=== PATIENT | female | born 1985 | race Two or more races ===

== ENCOUNTER 2023-08-06 20:30 | Outpatient (REF) | payer OTHER, SELFPAY ==
[2023-08-11 13:09] LABS: Age Gdln ACOG Testing Note (.); HPV Aptima Negative (Negative); IGP, Aptima HPV, rfx 16/18,45 Note (.)
== END 2023-08-06 20:31 | disposition home or self-care (01) ==
LOC: LAB 20:30
PROVIDERS: Visit Provider Obstetrics & Gynecology
DX: Z01.419 Encounter for gynecological examination (general) (routine) without abnormal findings (principal)
CPT/HCPCS: 87624; G0145

== ENCOUNTER 2024-08-25 18:18 | Outpatient (REF) | payer OTHER, SELFPAY ==
--- OUTSIDE RECORDS SUMMARY | 2024-08-25 18:24 | XMS_ITS | CCD ---
Author Organization [facility] Care Team Providers Care Mold Inspector Name Role Phone DARRYL ., DR LUZ Admitting Unavailable DARRYL ., DR LUZ Attending Unavailable DARRYL ., DR LUZ Consulting Unavailable DARRYL ., DR LUZ Admitting Unavailable DARRYL ., DR LUZ Attending Unavailable REQUEST, DR STEPHENSON LISTED Primary Care Unavaila ble DARRYL ., DR LUZ Consulting Unavailable ZIEBER, DR KOFI Mancilla Consulting Unavailable Unavailable Primary Care Provider Unavailabl e SUKH ANDREWS Attending Unavailable TEO BRADFORD Referring Unavailable RUBIO, JASON Primary Care Unavailable TEO BRADFORD Attending Unavailable RUBIO, JASON Referring Unavailable RUBIO, JASON Primary Care Unavailable SANCHEZ BRUCE N Attending Unavailable RUBIO, JASON Referring Unavailable RUBIO, JASON Primary Care Unavailable RUBIO, JASON Referring Unavailable RUBIO, JASON Primary Care Unavailable Rubio PENSION EXAMINER-CUSTOMER SERVICE ADVISOR, Jason Primary Care Provider [phone] RUBIO JASON Attending Unavailable RUBIO, JASON Referring Unavailable RUBIO, JASON Primary Care Unavailable RUBIO, JASON Attending Unavailable RUBIO, JASON Referring Unavailable RUBIO, JASON Primary Care Unavailable MUSTAPHA WARD Attending Unavailable RUBIO, JASON Referring Unavailable RUBIO, JASON Primary Care Unavailable RUBIO, JASON Attending Unavailable RUBIO, JASON Referring Unavailable RUBIO, JASON Primary Care Unavailable KIZZY AHN Attending Unavailable RUBIO, JASON Referring Unavailable RUBIO, JASON Primary Care Unavailable MUSTAPHA WARD Attending Unavailable RUBIO, JASON Referring Unavailable RUBIO, JASON Primary Care Unavailable RUBIO, JASON Attending Unavailable RUBIO, JASON Referring Unavailable RUBIO, JASON Primary Care Unavailable RUBIO, JASON Attending Unavailable RUBIO, JASON Referring Unavailable RUBIO, JASON Primary Care Unavailable Allergies Allergy Classification Reported Allergen(s) Allergy Type Date of Onset Reaction(s) Facility (7 sources) Lisinopril; Translations: [LISINOPRIL] Drug Allergy 06-21-2021 Headache [facility] Rep[facility] Medications Current Medications Medication Drug Class(es) Dates Sig (Normalized) Sig (Original) 12 hr acetaZOLAMIDE 500 mg extended release oral capsule (7 sources) Carbonic Anhydrase Inhibitor Start: 04-10-2024 take 1 capsule by mouth in the morning, then take 1 capsule by mouth at bedtime acetaZOLAMIDE (DIAMOX) 500 mg capsule Indications: Pseudotumor cerebri Take 1 capsule (500 mg total) by mouth in the morning and 1 capsule (500 mg total) before bedtime. 04/10/2024 Active take 2 capsules by m outh twice daily at bedtime acetaZOLAMIDE (Diamox) 500 MG 12 hr capsule TAKE 2 CAPSULES BY MOUTH TWICE DAILY (IN THE MORNING AND BEFORE BEDTIME) Active End: 08-25-2024 acetaZOLAMIDE (Diamox) 500 M G 12 hr capsule Diamox Sequels 08/25/2024 Discontinued [id number] 200 actuat albuterol 0.09 mg/actuat metered dose inhaler (2 sources) beta2-Adrenergic Agonist Start: 03-19-2024 take 2 puff(s) by mouth every six hours as needed for wheezing albuterol HFA 90 mcg/act inhaler INHALE 2 PUFFS BY MOUTH EVERY 6 HOURS NEEDED FOR WHEEZING OR SHORTNESS OF BREATH 03/19/2024 Active cholestyramine resin 4000 mg powder for oral suspension (1 source) Bile Acid Sequestrant Start: 04-10-2024 cholestyramine (QUESTRAN) 4 g packet Take 1 packet by mouth in the morning and 1 packet at noon and 1 packet in the evening. Take with meals. 90 packet 3 04/10/2024 Active levothyroxine sodium 0.025 mg oral tablet (4 sources) l-Thyroxine Start: 01-07-2024 take 1 tablet by mouth in the morning levothyroxine (SYNTHROID, LEVOTHROID) 25 MCG tablet Indications: Hypothyroidism, unspecified type Take 1 tablet (25 mcg total) by mouth in the morning. 90 tablet 3 01/07/2024 Active ondansetron 4 mg disintegrating oral tablet (1 source) Serotonin-3 Receptor Antagonist Start: 06-19-2024 ondansetron ODT (ZOFRAN ODT) 4 mg disintegrating tablet Indications: Influenza A Dissolve 1 tablet (4 mg total) on tongue every 8 (eight) hours as needed for nausea or vomiting. 10 tablet 06/19/2024 Active Start: 06-19-2024 ondansetron OD T (ZOFRAN ODT) 4 mg disintegrating tablet Indications: Influenza A Dissolve 1 tablet (4 mg total) on tongue every 8 (eight) hours as needed for nausea or vomiting. 10 tablet 06/19/2024 Active 24 hr propranolol hydrochloride 80 mg extended release oral capsule (7 sources) beta-Adrenergic Matti Start: 01-17-2024 take 1 capsule by mouth once daily in the morning propranolol LA (INDERAL LA) 80 mg 24 hr capsule Indications: Anxiety , Hypertension, unspecified type take 1 capsule by mouth every morning 90 capsule 3 01/17/2024 Active End: 08-25-2024 propranolol LA (Inderal LA) 60 MG 24 hr capsule Propranolol HCl 08/25/2024 Discontinued (Ineffective) Problems Active Problems Problem Classification Problem Date Documented Da te Episodic/Chronic Diseases of white blood cells (4 sources) Elevated white blood cell count, unspecified; Translations: [Lymphocytosis (symptomatic)] Onset: 01-02-2023 01-02-2023 Chronic Disorders of lipid metabolism (1 source) Mixed hyperlipidemia; Translations: [Mixed hyperlipidemia] Onset: 02-02-2021 02-02-2021 Chronic Essential hypertension (1 source) Essential hypertension; Translations: [Essential (primary) hypertension] Onset: 02-02-2021 02-02-2021 Chronic Influenza (2 sources) Influenza due to Influenza A virus; Translations: [Influenza due to other identified influenza virus with other respiratory manifestations] Onset: 06-19-2024 06-19-2024 Episodic Nonmalignant breast conditions (5 sources) Other specified disorders of breast; Translations: [Unspecified lump in the left breast, upper inner quadrant] Onset: 08-23-2022 Episodic Other endocrine disorders (1 source) Empty sella syndrome; Translations: [Other disorders of pituitary gland] Onset: 06-21-2021 06-21-2021 Chronic Other endocrine disorders (1 source) Other disorders of pituitary gland; Translations: [Other disorders of pituitary gland] Onset: 06-21-2021 Chronic Other gastrointestinal disorders (1 source) Other fecal abnormalities; Translations: [Other fecal abnormalities] Onset: 04-10-2024 Episodic Other lower respiratory disease (1 source) Cough Onset: 06-19-2024 Episodic Other nervous system disorders (1 source) Benign intracranial hypertension; Translations: [Benign intracranial hypertension] Onset: 05-21-2021 05-21-2021 Chronic Other nervous system disorders (1 source) Benign intracranial hypertension; Translations: [Benign intracranial hypertension] Onset: 05-21-2021 Chronic Other non-traumatic joint disorders (2 sources) Bilateral chronic pain of upper limbs; Translations: [Pain in right shoulder] 08-25-2024 Episodic Other nutritional; endocrine; and metabolic disorders (1 source) Body mass index 40+ - severely obese; Translations: [Body mass index (BMI) 45.0-49.9, adult] Onset: 02-02-2021 02-02-2021 Chronic Residual codes; unclassified (1 source) Family history of malignant neoplasm of trachea, bronchus and lung; Translations: [FAM HX MALIG NEOPLSM TRACH BRON LNG] Onset: 08-26-2022 Episodic Residual codes; unclassified (1 source) Family history of malignant neoplasm of other organs or systems; Translations: [FAM HX MALIG NEOPLASM OTH ORGN/SYS] Onset: 08-26-2022 Episodic Residual codes; unclassified (1 source) Generalized aches and pains; Translations: [Pain, unspecified] 06-19-2024 Episodic Residual codes; unclassified (1 source) Pain, unspecified; Translations: [Pain, unspecified] Onset: 06-19-2024 Episodic Spondylosis; intervertebral disc disorders; other back problems (2 sources) Backache; Translations: [Dorsalgia, unspecified] 08-25-2024 Episodic Thyroid disorders (3 sources) Hypothyroidism, unspecified; Translations: [Hypothyroidism] Onset: 02-02-2021 01-11-2023 Chronic Unclassified (1 source) Illness Onset: 01-15-2024 Viral infection (1 source) COVID-19; Translations: [COVID-19] Onset: 01-15-2024 Past or Other Problems Problem Classification Problem Date Documented Date Episodic/Chronic Headache; including migraine (1 source) Headache; Translations: [Chronic nonintractable headache] Onset: 05-21-2021 Resolved: 07-26-2023 07-26-2023 Episodic Mood disorders (1 source) Mood disorders Onset: 04-10-2024 04-10-2024 Other screening for suspected conditions (not mental disorders or infectious disease) (6 sources) Encounter for screening for malignant neoplasm of cervix; Translations: [Encounter for screening for lipoid disorders] Onset: 08-02-2022 Episodic Other upper respiratory disease (1 source) Throat pain Onset: 06-27-2023 Episodic Other upper respiratory infections (1 source) Acute pharyngitis, unspecified; Translations: [Acute pharyngitis, unspecified] Onset: 06-27-2023 Episodic Otitis media and related conditions (1 source) Otitis media, unspecified, left ear; Translations: [Otitis media, unspecified, left ear] Onset: 06-27-2023 Episodic Pneumonia (except that caused by tuberculosis or sexually transmitted disease) (1 source) Pneumonia, unspecified organism; Translations: [Pneumonia, unspecified organism] Onset: 03-19-2024 Episodic Results Test Name Value Interpretation Reference Range Facility POCT Influenza A/Influenza B /SARS-COV-2 Veritoron 06-19-2024 External Poct Influenza A Antigen Positive [facility] External Poct Influenza B Antigen Negative [facility] SARS-CoV-2 (COVID-19) Ag IA.rapid Ql (Resp) Negative [facility] CBC AND AUTO DIFFon 04-03-20 ABSOLUTE BASOPHIL 0.1 X10E9/L Normal 0.0-0.2 [facility] Comment on above: Performed By: #### C ANATOLIY BRYAN, 88467-7, 3016-3, 3024-7 #### [facility] ([id number]) [address], [address] [place] [address] ABSOLUTE NEUTROPHIL 3.8 X10E9/L Normal 1.5-6.6 [facility] Comment on above: Performed By: #### C ANATOLIY BRYAN, 93468-0, 3016-3, 3024-7 #### [facility] ([id number]) [address], [address] [place] [address] Basophils/100 WBC (Bld) 0.7 % Normal [facility] Comment on above: Performed By: #### C BCA, CMP, 15785-2, 3016-3, 3023-7 #### [facility] ([id number]) [address] [place] [address] Eosinophils (Bld) [#/Vol] 0.2 10*3/uL Normal 0.0-0.4 [facility] Comment on above: Performed By: #### C BCA, CMP, 33954-8, 3016-3, 3023-7 #### [facility] ([id number]) [address], [facility] [address] [place] [address] Eosinophils/100 WBC (Bld) 2.2 % Normal [facility] Comment on above: Performed By: #### C BCA, CMP, 57778-3, 6-3, 3023-7 #### [facility] ([id number]) [address] [place] [address] Erythrocyte distribution width (RBC) [Ratio] 15.6 % High 11.5-15.0 [facility] Comment on above: Performed By: #### C BCA, CMP, 46654-6, 3016-3, 3023-12 #### [facility] ([id number]) [address] [place] [address] Hematocrit (Bld) [Volume fraction] 43.7 % Normal 35-47 [facility] Comment on above: Performed By: #### C BCA, CMP, 95181-6, 3016-3, 3023-12 #### [facility] ([id number]) [address] [place] [address] Hemoglobin (Bld) [Mass/Vol] 14.4 g/dL Normal 11.7-15.5 [facility] Comment on above: Performed By: #### C BCA, CMP, 56116-7, 3016-3, 3023-7 #### [facility] ([id number]) [address] [address] [place] [address] Lymphocytes (Bld) [#/Vol] 3.3 10*3/uL Normal 1.0-3.5 [facility] Comment on above: Performed By: #### Lexx BCA CMP, 39133-0, 3016-3, 3023-7 #### [facility] ([id number]) [address] [place] [address] Lymphocytes/100 WBC (Bld) 43.0 % Normal [facility] Comment on above: Performed By: #### C BCA, CMP, 51094-9, 6-3, 3023-7 #### [facility] ([id number]) [address] [address] MCH (RBC) [Entitic mass] 28.7 pg Normal 27-34 [facility] Comment on above: Performed By: #### Lexx BCA, CMP, 38596-5, 3015-3, 3023-12 #### [facility] ([id number]) [address] [place] [address] MCHC (RBC) [Mass/Vol] 32.9 g/dL Normal 32-36 [facility] Comment on above: Performed By: #### Lexx BCA, CMP, 98022-7, 3015-3, 7 #### [facility] ([id number]) [address] [address] MCV (RBC) [Entitic vol] 87 fL Normal 80-100 [facility] Comment on above: Performed By: #### Lexx BCA, CMP, 31532-1, 6-3, 3023- #### [facility] ([id number]) [address] [place] [address] Monocytes (Bld) [#/Vol] 0.4 10*3/uL Normal 0-0.9 [facility] Comment on above: Performed By: #### Lexx BCA, CMP, 69056-4, 3016-3, 3024-7 #### [facility] ([id number]) [address], [address] [place] [address] Monocytes/100 WBC (Bld) 5.0 % Normal [facility] Comment on above: Performed By: #### C BCA, CMP, 67939-4, 3016-3, 3024-7 #### [facility] ([id number]) [address], [address] [place] [address] Neutrophils/100 WBC (Bld) 49.1 % Normal [facility] Comment on above: Performed By: #### Lexx BCA, CMP, 75942-7, 3016-3, 302-7 #### [facility] ([id number]) [address], [address] [place] [address] Platelet mean volume (Bld) [Entitic vol] 10.2 fL Normal 7-12 [facility] Comment on above: Performed By: #### Lexx BCA, CMP, 13726-7, 3016-3, 302-7 #### [facility] ([id number]) [address], [address] [place] [address] Platelets (Bld) [#/Vol] 287 10*3/uL Normal 150-450 [facility] Comment on above: Performed By: #### Lexx BCA, CMP, 91368-7, 3016-3, 302-7 #### [facility] ([id number]) [address], [address] [place] [address] RBC COUNT 5.01 X10E12/L Normal 3.80-5.20 [facility] Comment on above: Performed By: #### C BCA, CMP, 61573-3, 3016-3, 3024-7 #### [facility] ([id number]) [address], [address] [place] [address] WBC (Bld) [#/Vol] 7.7 10*3/uL Normal 4.0-11.0 [facility] Comment on above: Performed By: #### C BCA, CMP, 04186-9, 3016-3, 3024-7 #### [facility] ([id number]) [address], [address] [place] [address] COMPREHENSIVE METABOLIC PANE Lanre 04-03-2024 Albumin [Mass/Vol] 4.0 g/dL Normal 3.2-5.3 [facility] Comment on above: Performed By: #### C BCA, CMP, 96421-7, 3016-3, 3024-7 #### [facility] ([id number]) [address], [address] [place] [address] ALP [Catalytic activity/Vol] 59 U/L Normal 39-130 [facility] Comment on above: Performed By: #### C BCA, CMP, 83793-8, 3016-3, 3024-7 #### [facility] ([id number]) [address], [address] [place] [address] ALT [Catalytic activity/Vol] 14 U/L Normal 0-31 [facility] Comment on above: Performed By: #### C BCA, CMP, 11711-6, 3016-3, 3024-7 #### [facility] ([id number]) [address], [address] [place] [address] Anion gap [Moles/Vol] 9 mmol/L Normal 5-15 [facility] Comment on above: Performed By: #### C BCA, CMP, 61870-0, 3016-3, 3024-7 #### [facility] ([id number]) [address], [address] [place] [address] AST [Catalytic activity/Vol] 16 U/L Normal 0-41 [facility] Comment on above: Performed By: #### C BCA, CMP, 63350-7, 3016-3, 3024-7 #### [facility] ([id number]) [address], [address] [place] [address] Bilirubin [Mass/Vol] 0.6 mg/dL Normal 0.3-1.2 [facility] Comment on above: Performed By: #### C BCA, CMP, 02397-1, 3016-3, 3024-7 #### [facility] ([id number]) [address], [address] [place] [address] Calcium [Mass/Vol] 9.0 mg/dL Normal 8.5-10.5 [facility] [place] Comment on above: Performed By: #### C BCA, CMP, 49603-2, 3016-3, 302-7 #### [facility] ([id number]) [address], [address] [place] [address] Chloride [Moles/Vol] 112 mmol/L High 98-109 [facility] Comment on above: Performed By: #### C BCA, CMP, 68472-1, 3016-3, 302-7 #### [facility] ([id number]) [address], [address] [place] [address] CO2 [Moles/Vol] 19 mmol/L Low 22-32 [facility] Comment on above: Performed By: #### C BCA, CMP, 82567-5, 3016-3, 302-7 #### [facility] ([id number]) [address], [address] [place] [address] Creatinine [Mass/Vol] 0.81 mg/dL Normal 0.40-1.00 [facility] Comment on above: Result Comment: METH OD TRACEABLE TO IDMS STANDARD Performed By: #### C BCA, CMP, 98674-8, 3016-3, 3024-7 #### [facility] ([id number]) [address], [address] [place] [address] eGFR (CKD-EPI) NON-RACE DEPENDENT >90 Normal >59 [facility] Comment on above: Result Comment: Reported eGFR is based on the CKD-EPI 2020 equation that does not use a race coefficient. Performed By: #### C BCA, CMP, 65227-7, 3016-3, 3023-7 #### [facility] ([id number]) [address], [address] [place] [address] Glucose [Mass/Vol] 92 mg/dL Normal 65-99 [facility] Comment on above: Performed By: #### C BCA, CMP, 45318-6, 3016-3, 7 #### [facility] ([id number]) [address], [address] [place] [address] Potassium [Moles/Vol] 4.1 mmol/L Normal 3.5-5.0 [facility] Comment on above: Performed By: #### C BCA, CMP, 11096-0, 3016-3, 7 #### [facility] ([id number]) [address], [address] [place] [address] Protein [Mass/Vol] 7.0 g/dL Normal 6.0-8.0 [facility] Comment on above: Performed By: #### C BCA, CMP, 43357-9, 3016-3, 7 #### [facility] ([id number]) [address], [address] [place] [address] Sodium [Moles/Vol] 140 mmol/L Normal 134-146 [facility] [place] Comment on above: Performed By: #### C BCA, CMP, 85949-1, 3016-3, 3023-7 #### [facility] ([id number]) [address], [address] [place] [address] Urea nitrogen [Mass/Vol] 17 mg/dL Normal 5-23 [facility] Comment on above: Performed By: #### C BCA, CMP, 54318-4, 3016-3, 3023-7 #### [facility] ([id number]) [address], [address] [place] [address] FREE T4on 04-03-2024 Free T4 [Mass/Vol] 0.71 ng/dL Normal 0.61-1.60 [facility] [place] Comment on above: Performed By: #### Lexx BCA, CMP, 75989-4, 6-3, 3023-7 #### [facility] ([id number]) [address], [address] [place] [address] Lipid 1996 panelon Cholesterol [Mass/Vol] 138 mg/dL Low 150-200 [facility] Comment on above: Performed By: #### Lexx BRYAN, CMP, 38890-7, 3015-3, 302-7 #### [facility] ([id number]) [address], [address] [place] [address] Cholesterol in HDL [Mass/Vol] 41 mg/dL Normal >39 [facility] Comment on above: Result Comment: HDL <40 mg/dL - High Risk HDL > or = 40mg/dL- Desirable HDL >60 mg/dL - Negative Risk Performed By: #### C BCA, CMP, 23017-6, 3015-3, 302-7 #### [facility] ([id number]) [address], [address] [place] [address] Cholesterol in LDL [Mass/Vol] 87 mg/dL Normal <130 [facility] Comment on above: Result Comment: LDL <100 mg/dL - Desirable LDL >160 mg/dL - High Risk Performed By: #### C BCA, CMP, 72091-5, 6-3, 3024-7 #### [facility] ([id number]) [address], [address] [place] [address] Cholesterol in VLDL [Mass/Vol] 10 mg/dL Normal 0-30 [facility] Comment on above: Performed By: #### C BCA, CMP, 16785-9, 3016-3, 3024-7 #### [facility] ([id number]) [address], [address] [place] [address] CHOLESTEROL:HDL 3.4 Normal 1.0-5.0 [facility] Comment on above: Performed By: #### C BCA, CMP, 66540-4, 3016-3, 3024-7 #### [facility] ([id number]) [address], [address] [place] [address] Triglyceride [Mass/Vol] 51 mg/dL Normal 27-150 [facility] Comment on above: Performed By: #### C BCA, CMP, 10251-4, 3016-3, 3024-7 #### [facility] ([id number]) [address], [address] [place] [address] TSH Qnon 04-03-2024 TSH 3.87 uIU/mL Normal 0.49-4.67 [facility] Comment on above: Performed By: #### C BCA, CMP, 90512-2, 3016-3, 3024-7 #### [facility] ([id number]) [address], [address] [place] [address] CBC AND AUTO DIFFon 11-02-19 24 ABSOLUTE BASOPHIL 0.1 X10E9/L Normal 0.0-0.2 [facility] [place] Comment on above: Performed By: #### C BCA, LLPH #### [facility] ([id number]) [address] [facility] [address] [place] [address] ABSOLUTE NEUTROPHIL 5.1 X10E9/L Normal 1.5-6.6 [facility] Comment on above: Performed By: #### C IRVIN, LLPH #### [facility] ([id number]) [address], [address] [place] [address] Basophils/100 WBC (Bld) 0.6 % Normal [facility] Comment on above: Performed By: #### C IRVIN, LLPH #### [facility] ([id number]) [address], [address] [place] [address] Eosinophils (Bld) [#/Vol] 0.1 10*3/uL Normal 0.0-0.4 [facility] Comment on above: Performed By: #### C IRVIN, LLPH #### [facility] ([id number]) [address], [address] [place] [address] Eosinophils/100 WBC (Bld) 1.1 % Normal [facility] Comment on above: Performed By: #### C IRVIN, LLPH #### [facility] ([id number]) [address], [address] [place] [address] Erythrocyte distribution width (RBC) [Ratio] 15.0 % Normal 11.5-15.0 [facility] Comment on above: Performed By: #### C IRVIN, LLPH #### [facility] ([id number]) [address] [place] [address] Hematocrit (Bld) [Volume fraction] 39.8 % Normal 35-47 [facility] Comment on above: Performed By: #### C IRVIN, LLPH #### [facility] ([id number]) [address], [address] [place] [address] Hemoglobin (Bld) [Mass/Vol] 13.3 g/dL Normal 11.7-15.5 [facility] Comment on above: Performed By: #### C IRVIN, LLPH #### [facility] ([id number]) [address], [address] [place] [address] Lymphocytes (Bld) [#/Vol] 4.3 10*3/uL High 1.0-3.5 [facility] Comment on above: Performed By: #### C IRVIN, LLPH #### [facility] ([id number]) [address], [address] [place] [address] Lymphocytes/100 WBC (Bld) 42.6 % Normal [facility] Comment on above: Performed By: #### C IRVIN, LLPH #### [facility] ([id number]) [address], [facility] [address] [place] [address] MCH (RBC) [Entitic mass] 28.0 pg Normal 27-34 [facility] Comment on above: Performed By: #### C IRVIN, LLPH #### [facility] ([id number]) [address] [address] [place] [address] MCHC (RBC) [Mass/Vol] 33.4 g/dL Normal 32-36 [facility] Comment on above: Performed By: #### C IRVIN, LLPH #### [facility] ([id number]) [address], [address] [place] [address] MCV (RBC) [Entitic vol] 84 fL Normal 80-100 [facility] Comment on above: Performed By: #### C IRVIN, LLPH #### [facility] ([id number]) [address] [facility] [facility] [address] [place] [address] Monocytes (Bld) [#/Vol] 0.6 10*3/uL Normal 0-0.9 [facility] Comment on above: Performed By: #### C IRVIN, LLPH #### [facility] ([id number]) [address] [facility] [facility] [address] [place] [address] Monocytes/100 WBC (Bld) 5.4 % Normal [facility] Comment on above: Performed By: #### C IRVIN, LLPH #### [facility] ([id number]) [address], [address] [place] [address] Neutrophils/100 WBC (Bld) 50.3 % Normal [facility] Comment on above: Performed By: #### C IRVIN, LLPH #### [facility] ([id number]) [address], [address] [place] [address] Platelet mean volume (Bld) [Entitic vol] 9.8 fL Normal 7-12 [facility] Comment on above: Performed By: #### C IRVIN, LLPH #### [facility] ([id number]) [address], [address] [place] [address] Platelets (Bld) [#/Vol] 314 10*3/uL Normal 150-450 [facility] Comment on above: Performed By: #### C IRVIN, LLPH #### [facility] ([id number]) [address], [address] [place] [address] RBC COUNT 4.76 X10E12/L Normal 3.80-5.20 [facility] Comment on above: Performed By: #### C IRVIN, LLPH #### [facility] ([id number]) [address], [address] [place] [address] WBC (Bld) [#/Vol] 10.2 10*3/uL Normal 4.0-11.0 [facility] Comment on above: Performed By: #### C IRVIN, LLPH #### [facility] ([id number]) [address], [address] [place] [address] FLOW CYTOMETRYon 11-02-2023 FLOW CYTOMETRY SEE SEPARATE REPORT Normal P [facility] Comment on above: Result Comment: REVI EWED BY EMILIANO QUIÑONEZ M.D. Performed By: #### C IRVIN, LLPH #### [facility] ([id number]) [address], [address] [place] [address] Surgical Pathologyon 024 Surgical Pathology Normal [facility] [place] Comment on above: Result Comment: [facility] [address] [place], [place] [address] Flow Cytometry Patient Name:SOM PAINTERAccession #:[id number]. Rec. #:[id number]:[facility] FrTaken:4DOB:1985 (Age: 38)Location:LAB (EPIC) Received:11/03/2023Gender: FBill. Type:Outreach (E)Reported:Priority:RBilling #:[id number] Class:OFC Special Procedure OnlyPhysician(s): Teo Bradford M.D. Copy To: Specimen(s) Received Blood for Flowcytometry Status: Signed Out Interpretation Normal peripheral blood immunophenotyping study. Flow cytometric analysis of the peripheral blood leukocytes demonstrates mature hematolymphoid elements. Blasts are not increased on CD45/side scatter analysis or CD34 staining, immature cells are inconspicuous, and aberrant patterns of antigen expression are not seen. [place] on the lymphoid population demonstrates a mixed population of phenotypically unremarkable T-cells, natural killer cells, and polyclonal B-cells, without a detectable monoclonal population. Immunophenotyping antibodies tested: CD2, CD3, CD4, CD5, CD7, CD8, CD10, CD13, CD16, CD19, CD20, CD23, CD33, CD34, CD38, CD43, CD45, CD56, CD117, CD123, CD138, [place], and Lambda. Immunophenotyping Comment: Immunophenotyping has been used in this diagnostic evaluation. This test was developed and its performance characteristics determined by the [facility]. It has not been cleared or approved by the U.S. Food and Drug Administration. The FDA has determined that such clearance or approval is not necessary. This test is used for clinical purposes. It should not be regarded as investigational or for research. This laboratory is certified under the Clinical Laboratory Improvement Amendments of 1988 ( CLIA ) as qualified to perform high-complexity clinical testing. 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 Exam Date: 08/23/2022 : 1985 Gender:F Ordering : DR SUKH ANDREWS . Admission #: [id number] Family : Order #: [id number] CLICK HERE TO VIEW EXAM RADIOLOGY REPORT PROCEDURE: MAMMOGRAM DIAGNOSTIC 3D BILATERAL CAD, 08/23/2022, 10:06 ULTRASOUND BREAST LEFT LIMITED, 08/23/2022, 11:25 COMPARISON: MAMMO POST BIOPSY LEFT, 02/21/2016. MG MAMM REINALDO DIAG W CAD DIG, 02/11/2016. US BREAST LEFT LIMITED, 02/11/2016. MG MAMM LT DIAG W CAD, 08/11/2016. INDICATIONS: Disorder of breast Calculator Name NCI Breast Cancer Risk Assessment Tool 5 Year Breast Cancer Risk 0.50% Lifetime Breast Cancer Risk 11.70% Personal Breast Cancer No Personal Ovarian Cancer No Treatments None Family Cancers Grandmother-maternal with ? cancer at age 70; Grandfather-maternal with lung cancer at age 80. LOCATION: [facility] BREAST COMPOSITION: Heterogeneously dense,which may obscure small masses. FINDINGS: DIAGNOSTIC CATEGORY 2--BENIGN FINDING: RIGHT BREAST: No significant suspicious finding. No significant change has occurred. LEFT BREAST: Stable 2.7 cm well-circumscribed mass with adjacent biopsy marker clip within lower-inner quadrant. Skin surface marker localizing patient's palpable lump overlies this area. 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 RECOMMENDATIONS: CLINICAL EVALUATION. PLEASE NOTE: A NORMAL MAMMOGRAM DOES NOT EXCLUDE THE POSSIBILITY OF BREAST CANCER. A CLINICALLY SUSPICIOUS PALPABLE LUMP SHOULD BE BIOPSIED. Dictated by: Kofi Pacheco M.D. on 08/23/2022 at 11:37 Approved by: Kofi Pacheco M.D. 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 Admission #: [id number] Family : Order #: [id number] CLICK HERE TO VIEW EXAM RADIOLOGY REPORT PROCEDURE: MAMMOGRAM DIAGNOSTIC 3D BILATERAL CAD, 08/23/2022, 10:06 ULTRASOUND BREAST LEFT LIMITED, 08/23/2022, 11:25 COMPARISON: MAMMO POST BIOPSY LEFT, 02/21/2016. MG MAMM REINALDO DIAG W CAD DIG, 02/11/2016. US BREAST LEFT LIMITED, 02/11/2016. MG MAMM LT DIAG W CAD, 08/11/2016. INDICATIONS: Disorder of breast Calculator Name NCI Breast Cancer Risk Assessment Tool 5 Year Breast Cancer Risk 0.50% Lifetime Breast Cancer Risk 11.70% Personal Breast Cancer No Personal Ovarian Cancer No Treatments None Family Cancers Grandmother-maternal with ? cancer at age 70; Grandfather-maternal with lung cancer at age 80. LOCATION: [facility] BREAST COMPOSITION: Heterogeneously dense,which may obscure small masses. FINDINGS: DIAGNOSTIC CATEGORY 2--BENIGN FINDING: RIGHT BREAST: No significant suspicious finding. No significant change has occurred. LEFT BREAST: Stable 2.7 cm well-circumscribed mass with adjacent biopsy marker clip within lower-inner quadrant. Skin surface marker localizing patient's palpable lump overlies this area. 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 RECOMMENDATIONS: CLINICAL EVALUATION. PLEASE NOTE: A NORMAL MAMMOGRAM DOES NOT EXCLUDE THE POSSIBILITY OF BREAST CANCER. A CLINICALLY SUSPICIOUS PALPABLE LUMP SHOULD BE BIOPSIED. Dictated by: Kofi Pacheco M.D. on 08/23/2022 at 11:37 Approved by: Kofi Pacheco M.D. on 08/23/2022 at 11:46 Normal [facility] PAP ACOG PANEL 2: 30 to 65on 08-09-2022 . . Normal [facility] Comment on above: Result Comment: Perf ormed at: WB Performed By: #### [id number] #### [facility] [address] [address] [address] Ryan Bruce Age Gdln ACOG Testing 30-65 Normal [facility] Comment on above: Performed By: #### 4 [id number] #### [facility] [address] [place] [address] Dr. Ryan Bruce DIAGNOSIS: Comment Normal [facility] Comment on above: Result Comment: NEGA TIVE FOR INTRAEPITHELIAL LESION OR MALIGNANCY. Performed at: WB Performed By: #### [id number] #### [facility] [address] [place] [address] Dr. Ryan Bruce HPV Aptima Negative Normal Negative [facility] Comment on above: Result Comment: This nucleic acid amplification test detects fourteen high-risk HPV types (16,18,31,33,35,39,45,51,52,56,58,59,66,68) without differentiation. Performed at: =G Performed By: #### [id number] #### [facility] [address] [place] [address] Dr. Ryan Bruce HPV Genotype Reflex Comment Normal [facility] Comment on above: Result Comment: Crit eria not met, HPV Genotype not performed. Performed at: WB Performed By: #### [id number] #### [facility] [address] [place] [address] Dr. Ryan Bruce Methodology: CTIM Normal [facility] Comment on above: Result Comment: The Thin Prep(R) Oenologist was unable to read this specimen. Therefore a manual review was performed. Performed at: WB Performed By: #### [id number] #### [facility] [address] [place] [address] Dr. Ryan Bruce Note: Comment Normal [facility] Comment on above: Result Comment: The Pap smear is a screening test designed to aid in the detection of premalignant and malignant conditions of the uterine cervix. It is not a diagnostic procedure and should not be used as the sole means of detecting cervical cancer. Both false-positive and false-negative reports do occur. . Performed at: WB Performed By: #### [id number] #### [facility] [address] [place] [address] Dr. Ryan Bruce Performed by: Comment Normal [facility] Comment on above: Result Comment: Giovanny Chino, Measurement Operator (ASCP) Performed at: WB Performed By: #### [id number] #### [facility] [address] [place], [place] [address] Dr. Ryan Bruce Specimen adequacy: Comment Normal [facility] Comment on above: Result Comment: Sati sfactory for evaluation. Endocervical and/or squamous metaplastic cells (endocervical component) are present. Partially obscuring thick areas are present. Performed at: WB Performed By: #### [id number] #### [facility] [address] [place], [place] [address] Dr. Ryan Bruce Vital Signs Date Time Vital Sign Value Performing Clinician Facility 08-25-2024 13:25-0400 Body height 160 cm [facility] Work Phone: [facility] 08-25-2024 13:25-0400 Body mass index (BMI) [Ratio] 44.11 kg/m2 Sukh Darryl [employer] Work Phone: [facility] 08-25-2024 13:25-0400 Body weight 112.95 kg [facility] Work Phone: [facility] 08-25-2024 13:25-0400 Diastolic blood pressure 72 mm[Hg] [employer] [facility] Work Phone: [facility] 08-25-2024 13:25-0400 Systolic blood pressure 118 mm[Hg] Sukh Darryl [employer] Work Phone: [facility] 06-19-2024 10:15-0500 Body temperature 97.3 [degF] Jason Rubio PENSION EXAMINER-CUSTOMER SERVICE ADVISOR Work Phone: [facility] 06-19-2024 10:15-0500 Diastolic blood pressure 74 mm[Hg] Jason Rubio PENSION EXAMINER-CUSTOMER SERVICE ADVISOR Work Phone: [facility] 06-19-2024 10:15-0500 Heart rate 106 /min Jason Rubio PENSION EXAMINER-CUSTOMER SERVICE ADVISOR Work Phone: [facility] 06-19-2024 10:15-0500 SaO2% (BldA) [Mass fraction] 97 % Jason Rubio PENSION EXAMINER-CUSTOMER SERVICE ADVISOR Work Phone: [phone] [place] [address] 06-19-2024 10:150500 Systolic blood pressure 118 mm[Hg] [facility] PENSION EXAMINER-CUSTOMER SERVICE ADVISOR Work Phone: [facility] Encounters Encounter Date Encounter Type Care Provider Facility Start: 08-25-2024 End: 08-25-2024 Bamboo flowsheet Sukh Darryl DO Work Phone: [facility] Start: 08-25-2024 End: 08-25-2024 Bamboo flowsheet Sukh Darryl DO Work Phone: [facility] Start: 08-25-2024 End: 08-25-2024 Patient encounter procedure Sukh Darryl DO Work Phone: [facility] Start: 08-25-2024 End: 08-25-2024 Periodic preventive med est patient 18-39 yrs Sukh Darryl DO Work Phone: [facility] Comment on above: Well woman exam with routine gynecological exam; Chronic pain of both shoulders; Upper back pain Start: 06-19-2024 End: 06-19-2024 Office outpatient visit 15 minutes [facility] PENSION EXAMINER-CUSTOMER SERVICE ADVISOR Work Phone: [facility]/Alex Duarte MD Comment on above: Influenza A (Primary Dx); Body aches Start: 06-19-2024 End: 06-19-2024 ambulatory [facility] Start: 04-10-2024 End: 04-10-2024 ambulatory [facility] Start: 04-03-2024 End: 04-03-2024 ambulatory [facility] Start: 03-19-2024 End: 03-19-2024 ambulatory [facility] Start: 01-29-2024 End: 01-29-2024 ambulatory [facility] Start: 01-15-2024 End: 01-15-2024 ambulatory [facility] Start: 11-29-2023 End: 11-29-[address] [facility] Start: 11-02-2023 End: 11-02-2023 ambulatory TEO BRADFORD [facility] Start: 10-11-2023 End: 10-11-2023 ambulatory [facility] Start: 08-06-2023 End: 08-06-2023 ambulatory SUKH ANDREWS Not Available Start: 07-26-2023 End: 07-26-20[facility] Start: 07-20-2023 End: 07-20-[address] [facility] Start: 07-16-2023 Chart abstracting Sukh Andrews DO Work Phone: [facility] Start: 06-27-2023 End: 06-27-2023 ambulatory KIZZY Julio [facility] Start: 08-23-2022 End: 08-24-[address] SUKH ANDREWS . Facility: Start: 08-02-2022 End: 08-02-[address] SUKH ANDREWS . Facility: Procedures Date Procedure Procedure Detail Performing Clinician Start: 06-19-2024 POCT INFLUENZA A/INF LUENZA B/SARS-COV-2 VERITOR Jason [facility] PENSION EXAMINER-CUSTOMER SERVICE ADVISOR Work Phone: Start: 04-10-2024 Adult depression scr eening assessment [facility] PENSION EXAMINER-CUSTOMER SERVICE ADVISOR Work Phone: Start: 11-29-2023 Follow-up visit Follow-up TEO BRADFORD Start: 10-11-2023 Follow-up visit Follow-up [facility] Start: 08-06-2023 Microscopic observat ion [Identifier] in Cervix by Cyto stain Sukh Andrews DO Work Phone: Start: 08-06-2023 Cytp cerv/vag auto t hin layer prep mnl screen Sukh Andrews DO Work Phone: Plan of Treatment Date Care Activity Detail Author Start: 08-05-2028 Screening for malign ant neoplasm of cervix [facility] Start: 09-01-2025 End: 09-01-2025 Patient encounter procedure 09/01/2025 2:00 PM EDT Office Visit [facility] [address] [place] [address] Sukh Andrews, DO [address], [facility] Start: 06-02-2025 Tobacco Screening Tobacco Screening [facility] Start: 04-10-2025 Adult BMI Screening Adult BMI Screen ing [facility] Start: 04-10-2025 Depression Screening Depression Scre ening [facility] Start: 11-28-2024 End: 11-28-2024 Patient encounter procedure 11/28/2024 10:00 AM EDT Office Visit Daisha Gallegos [facility] [address] [place] [address] [place] [address] [place] [address] Daisha Gallegos [facility] Start: 09-26-2024 End: 09-26-2024 Patient encounter procedure 09/26/2024 10:30 AM EDT Office Visit [facility] [address] [place] [address] Mustapha Ward APRN-CUSTOMER SERVICE ADVISOR [address] [place] [address] [facility] Start: 08-25-2024 End: 08-25-2024 Patient encounter procedure 08/25/2024 1:20 PM EDT Office Visit [facility] [address] [place] [address] Sukh Andrews, DO [address] [place] [address] Arrived [facility] Comment on above: Arrived Start: 04-07-2024 DTaP,Tdap and Td Vaccines (2 - Td or Tdap) DTaP,Tdap and Td Vaccines (2 - Td or Tdap) [facility] Start: 02-03-2024 COVID-19 Vaccine ( season) COVID-19 Vaccine ( season) [facility] Start: 02-03-2024 Influenza vaccination P [facility] Start: 08-06-2023 End: 08-06-2023 Patient encounter procedure 08/06/2023 11:00 AM EST Office Visit [facility] [address] [place] [address] Sukh Andrews, DO [address] [place] [address] [facility] Start: 2017 Screening for malign ant neoplasm of cervix [facility] Start: 2008 Screening for malign ant neoplasm of cervix Pap Smear [facility] Start: 2005 Adult BMI Follow Up Plan Adult BMI Follow Up Plan [facility] Cytology Cervical or vaginal smear or scraping study Pap Smear Pathology and Cytology Routine Well woman exam with routine gynecological exam Ordered: 08/25/2024 [facility] Work Phone: Comment on above: Ordered: 08/25/2024 Human papilloma viru s DNA [Presence] in Unspecified specimen by Probe with amplification HPV DNA probe, amplified Microbiology Routine Well woman exam with routine gynecological exam Ordered: 08/25/2024 [facility] Comment on above: Ordered: 08/25/2024 Immunizations Immunization Date Immunization Notes Care Provider Michelle collazo 03-18-2021 influenza, injectabl e, quadrivalent, preservative free Jason Rubio PENSION EXAMINER-CUSTOMER SERVICE ADVISOR Work Phone: [facility] 03-18-2021 influenza virus vaccine, unspecified formulation Jason Rubio PENSION EXAMINER-CUSTOMER SERVICE ADVISOR Work Phone: [facility] 04-07-2014 tetanus toxoid, redu cedric diphtheria toxoid, and acellular pertussis vaccine, adsorbed Jason Rubio PENSION EXAMINER-CUSTOMER SERVICE ADVISOR Work Phone: [facility] Payers Date Payer Category Payer Private Health Insurance [employer] [id number] 2022 Managed Care Other (unspecified) [employer] [id number] 2022 Unknown [id number] 1985 Unknown [id number] [id number]. 2.593 1985 Unknown [id number] 2.16.840.1.651800.3.579. 2.593 1987 Unknown [id number] 2.16.840.1.124272.3.579. 2.1259 1987 Unknown [id number] 2.16.840.1.529793.3.579. 2.1286 1987 Unknown [id number] 2.16.840.1.424232.3.579. 2.[facility] 1985 Unknown [id number] 2.16.840.1.672985.3.579. 2.[facility] 1985 Unknown [id number] 2.16.840.1.396932.3.579. 2.[facility] 1985 Unknown [id number] 2.16.840.1.853055.3.579. 2.[facility] 1987 Unknown [id number] 2.16.840.1.770083.3.579. 2.[facility] 1985 Unknown [id number] 2.16.840.1.385508.3.579. 2.[facility] 1985 Unknown [id number] 2.16.840.1.997915.3.579. 2.[facility] 1987 Unknown [id number] 2.16.840.1.133021.3.579. 2.[facility] 1987 Unknown [id number] 2.16.840.1.272481.3.579. 2.[facility] 1985 Unknown [id number] 2.16.840.1.323084.3.579. 2.[facility] 1985 Unknown [id number] 2.16.840.1.660507.3.579. 2.1286 1959 Unknown [id number] Social History Date Type Detail Facility Start: 07-16-2023 Tobacco smoking status [facility] Never smoked tobacco [facility] Start: 05-31-2022 End: 07-16-2023 Tobacco use and exposure Smokeless tobacco non-user [facility] Start: 07-16-2023 End: 08-25-2024 Alcohol intake Lifetime non-drinker (finding) [facility] Start: 07-16-2023 Alcohol Comment caffeine: none [facility] Start: 1985 Sex Assigned At Not on file [facility] Start: 01-15-2021 End: 08-25-2024 Gender identity Not on file [facility] Start: 05-31-2022 Tobacco smoking status NHIS Ex-smoker [facility] End: 06-04-2014 History of tobacco use Current smoker [facility] End: 06-04-2014 History of tobacco use Cigarette Smoker [facility] Start: 06-19-2024 Alcoholic beverage intake Ex-drinker (finding) [facility] Start: 01-15-2021 End: 08-25-2024 History of Social function [facility] Do you belong to any clubs or organizations such as hoahaoism groups, unions, fraternal or athletic groups, or school groups? No [facility] Are you now , , , , never or living with a partner? [facility] How often to you hav e a drink containing alcohol? Monthly or less [facility] How many standard dr inks containing alcohol do you have on a typical day? 1 or 2 [facility] How often do you hav e 6 or more drinks on 1 occasion? Never [facility] How hard is it for y ou to pay for the very basics like food, housing, medical care, and heating Not hard at all [facility] Do you feel stress - tense, restless, nervous, or anxious, or unable to sleep at night because your mind is troubled all the time - these days [OSQ] Only a little [facility] Start: 01-15-2021 Education 21 [facility] Start: 1985 Sex assigned at Female [facility] Start: 01-07-2015 Sex Female (finding) [facility] Start: 01-15-2021 Gender identity Identifies as female gender (finding) [facility] Start: 01-15-2021 Sexual orientation Heterosexual (finding) [facility] History of Present illness Narrative 08-25-2024 Di Oquendo LPN - 08/25/2024 1:20 PM EDT Note Date & Type Note Facility 08-25-2024 History of Presen t illness Narrative Reason for Appointment: Patient ID: Som Painter is a 39 y.o. female who presents for Gynecologic Exam Patient presents today for Annual Exam. MEDICATIONS Current Outpatient Medications Medication Instructions acetaZOLAMIDE (Diamox) 500 MG 12 hr capsule TAKE 2 CAPSULES BY MOUTH TWICE DAILY (IN THE MORNING AND BEFORE BEDTIME) albuterol HFA 90 mcg/act inhaler INHALE 2 PUFFS BY MOUTH EVERY 6 HOURS NEEDED FOR WHEEZING OR SHORTNESS OF BREATH levothyroxine (SYNTHROID, LEVOXYL) 25 mcg, Oral, Every morning propranolol LA (INDERAL LA) 80 mg, Oral, Daily ALLERGIES Allergies Allergen Reactions Lisinopril Headache PROBLEMS Active Ambulatory Problems Diagnosis Date Noted No Active Ambulatory Problems Resolved Ambulatory Problems Diagnosis Date Noted No Resolved Ambulatory Problems Past Medical History: Diagnosis Date Cervical lesion Hypertension (CMS/HCC) HISTORY PAST MEDICAL HISTORY SOCIAL HISTORY Past Medical History: Diagnosis Date Cervical lesion Hypertension (CMS/HCC) Social History Tobacco Use Smoking status: Never Smokeless tobacco: Never Substance Use Topics Alcohol use: Never Comment: caffeine: none Drug use: Never FAMILY HISTORY Family History Problem Relation Name Age of Onset Hypertension Mother SURGICAL HISTORY Past Surgical History: Procedure Laterality Date CERVIX LESION DESTRUCTION laser to cervical lesions CHOLECYSTECTOMY 12/2018 open REVIEW OF SYSTEMS Review of Systems: Review of Systems All other systems reviewed and are negative. OBJECTIVE Objective: Physical Exam Constitutional: Appearance: Normal appearance. She is well-developed. Genitourinary: Vulva normal. Breasts: Breasts are soft. Right: Normal. Left: Normal. Cardiovascular: Rate and Rhythm: Normal rate and regular rhythm. Pulmonary: Effort: Pulmonary effort is normal. Breath sounds: Normal breath sounds. Abdominal: General: Bowel sounds are normal. There is no distension. Palpations: Abdomen is soft. Tenderness: There is no abdominal tenderness. There is no guarding or rebound. Musculoskeletal: General: No swelling. Normal range of motion. Right lower leg: No edema. Left lower leg: No edema. Neurological: Mental Status: She is alert and oriented to person, place, and time. Skin: General: Skin is warm and dry. Psychiatric: Mood and Affect: Mood normal. Behavior: Behavior normal. Vitals and nursing note reviewed. Exam conducted with a census enumerator present. Vitals: Estimated body mass index is 44.11 kg/m as calculated from the following: Height as of this encounter: 5' 3 . Weight as of this encounter: 249 lb. BP: 118/72 Patient's last menstrual period was 08/06/2024 (approximate). ASSESSMENT & PLAN ICD-10-CM 1. Well woman exam with routine gynecological exam Z01.419 Pap Smear HPV DNA probe, amplified Annual Exam: Patient presents today for an annual exam. Patient states she is doing well and has no complaints. Pap was obtained without difficulty. Patient voiced that breast size does cause upper back pain and shoulder pain. Patient voiced that bra straps cut into her shoulders. 5-point breast exam performed and at level of umbilicus pendulum and no movement with arms raised. Patient to be referred to Dr. Bledsoe to discuss possible breast reduction. Patient is currently in H bra size and that is a guess as she can not find bras in stores that fit. Orders Placed This Encounter Procedures HPV DNA probe, amplified Follow Up: Patient is to return in one year for annual unless needed otherwise. Documented by Di Oquendo LPN on behalf of: Sukh Andrews DO documented in this encounter [facility] History of Present illness Narrative 06-19-2024 Jason Rubio APRN-HEYDI - 06/19/2024 10:20 AM EST Note Date & Type Note Facility 06-19-2024 History of Present illness Narrative Subjective Patient ID: Som Painter is a 39 y.o. female. Chief Complaint Chief Complaint Patient presents with Cough Been going on since Sunday. Negative for covid on Sunday. Cough-productive, fatigue, head is full of pressure, sinus pressure, thrown up, diarrhea. Tried otc congestion medication. Denies body aches, chills or sore throat. HPI HPI Sunday started with cough, temp up to 100, chills, sinus congestion. Progressed to n/v/d yesterday. Taking corcidin. Exposed to ill coworkers Past Medical History Past Medical History: Diagnosis Date Anxiety Chronic headaches Hypertension Past Surgical History Past Surgical History: Procedure Laterality Date CHOLECYSTECTOMY Family History Family History Problem Relation Age of Onset Hypertension Mother Epilepsy Brother Lung cancer Maternal Grandfather Social History Social History Socioeconomic History Marital status: Spouse name: YURIDIA Number of children: Not on file Years of education: Not on file Highest education level: Some college, no degree Occupational History Not on file Tobacco Use Smoking status: Former Current packs/day: 0.00 Types: Cigarettes Quit date: 06/04/2014 Years since quittin.0 Smokeless tobacco: Never Vaping Use Vaping status: Never Used Substance and Sexual Activity Alcohol use: Not Currently Drug use: Never Sexual activity: Defer Other Topics Concern Not on file Social History Narrative LIVES IN [place]IDENCE WITH YURIDIA Social Drivers of Health Financial Resource Strain: Low Risk (01/15/2021) Overall Financial Resource Strain (CARDIA) Difficulty of Paying Living Expenses: Not hard at all Food Insecurity: No Food Insecurity (04/10/2024) Hunger Screening Food Insecurity - Worry: Never True Food Insecurity - Inability: Never True Transportation Needs: No Transportation Needs (01/15/2021) PRAPARE - Transportation Lack of Transportation (Medical): No Lack of Transportation (Non-Medical): No Physical Activity: Unknown (01/15/2021) Exercise Vital Sign Days of Exercise per Week: Not on file Minutes of Exercise per Session: 0 min Stress: No Stress Concern Present (01/15/2021) [place] [employer] - Occupational Stress Questionnaire Feeling of Stress : Only a little Social Connections: Socially Isolated (01/15/2021) Social Connection and Isolation Panel [NHANES] Frequency of Communication with Friends and Family: Once a week Frequency of Social Gatherings with Friends and Family: Never Attends [employer] Services: Never Active Member of Clubs or Organizations: No Attends Club or Organization Meetings: Never Marital Status: Interpersonal Safety: Not At Risk (01/15/2021) Humiliation, Afraid, Rape, and Kick questionnaire Fear of Current or Ex-Partner: No Emotionally Abused: No Physically Abused: No Sexually Abused: No Housing Instability: Not on file Allergies Allergies Allergen Reactions Lisinopril Headache Current Medications Current Outpatient Medications Medication Sig Dispense Refill acetaZOLAMIDE (DIAMOX) 500 mg capsule Take 1 capsule (500 mg total) by mouth in the morning and 1 capsule (500 mg total) before bedtime. cholestyramine (QUESTRAN) 4 g packet Take 1 packet by mouth in the morning and 1 packet at noon and 1 packet in the evening. Take with meals. 90 packet 3 levothyroxine (SYNTHROID, LEVOTHROID) 25 MCG tablet Take 1 tablet (25 mcg total) by mouth in the morning. 90 tablet 3 propranolol LA (INDERAL LA) 80 mg 24 hr capsule take 1 capsule by mouth every morning 90 capsule 3 ondansetron ODT (ZOFRAN ODT) 4 mg disintegrating tablet Dissolve 1 tablet (4 mg total) on tongue every 8 (eight) hours as needed for nausea or vomiting. 10 tablet 0 No current facility-administered medications for this visit. Review of Systems Review of Systems Constitutional: Positive for appetite change, chills, fatigue and fever. HENT: Positive for congestion, postnasal drip and rhinorrhea. Respiratory: Positive for cough. Cardiovascular: Negative for chest pain. Gastrointestinal: Positive for diarrhea, nausea and vomiting. Genitourinary: Negative for dysuria. Neurological: Negative for dizziness and light-headedness. Objective Vitals BP 118/74 Pulse 106 Temp 36.3 C (97.3 F) (Temporal) SpO2 97% Physical Exam Physical Exam Vitals reviewed. Constitutional: General: She is not in acute distress. Appearance: She is well-developed. She is not ill-appearing or toxic-appearing. HENT: Head: Normocephalic and atraumatic. Jaw: No trismus. Right Ear: Hearing, tympanic membrane, ear canal and external ear normal. Left Ear: Hearing, tympanic membrane, ear canal and external ear normal. Nose: Mucosal edema present. Right Sinus: No maxillary sinus tenderness or frontal sinus tenderness. Left Sinus: No maxillary sinus tenderness or frontal sinus tenderness. Mouth/Throat: Pharynx: Uvula midline. No oropharyngeal exudate, posterior oropharyngeal erythema or uvula swelling. Eyes: General: Lids are normal. Conjunctiva/sclera: Conjunctivae normal. Cardiovascular: Rate and Rhythm: Normal rate and regular rhythm. Heart sounds: Normal heart sounds, S1 normal and S2 normal. No murmur heard. Pulmonary: Effort: Pulmonary effort is normal. Breath sounds: Normal breath sounds. No decreased breath sounds, wheezing, rhonchi or rales. Abdominal: General: Abdomen is flat. Bowel sounds are increased. Palpations: Abdomen is soft. Tenderness: There is no abdominal tenderness. Musculoskeletal: Cervical back: Neck supple. Lymphadenopathy: Cervical: No cervical adenopathy. Skin: General: Skin is warm and dry. Findings: No rash. Neurological: Mental Status: She is alert and oriented to person, place, and time. Psychiatric: Attention and Perception: Attention normal. Mood and Affect: Mood normal. Mood is not anxious. Speech: Speech normal. Behavior: Behavior normal. Thought Content: Thought content normal. Cognition and Memory: Cognition normal. Judgment: Judgment normal. Recent Pertinent Labs and Radiology Assessment/Plan 1. Influenza A - POCT Influenza A/Influenza B/SARS-COV-2 Veritor - ondansetron ODT (ZOFRAN ODT) 4 mg disintegrating tablet; Dissolve 1 tablet (4 mg total) on tongue every 8 (eight) hours as needed for nausea or vomiting. Dispense: 10 tablet; Refill: 0 2. Body aches - POCT Influenza A/Influenza B/SARS-COV-2 Veritor Too late in course for Tamiflu to be of benefit Push fluids, rest Will complete work note Zofran prn Call if symptoms worsen or not improved There are no discontinued medications. There are no Patient Instructions on file for this visit. DANIELA Moore 06/19/24 [id number] documented in this encounter [facility] Evaluation note Note Date & Type Note Facility Evaluation note Diagnosis Influenza A- Primary Influenza with other respiratory manifestations Body aches Generalized pain documented in this encounter [facility] Evaluation note Note Date & Type Note Facility Evaluation note Diagnosis Well woman exam with routine gynecological exam Routine gynecological examination Chronic pain of both shoulders Upper back pain Unspecified backache documented in this encounter [facility] Instructions Note Date & Type Note Facility Instructions Not on filedocumented in this en counter [facility] Summary Purpose Family History No Family History Records FoundNo Family History Records FoundNo Family History Records FoundNo Family History Records Found Advance Directives No Advanced Directives Records FoundNo Advanced Directives Records FoundNo Advanced Directives Records FoundNo Advanced Directives Records Found Additional Source Comments INFORMATION SOURCE (unrecogn ized section and content) DATE CREATED AUTHOR 08/27/2022 [facility] DATE CREATED AUTHOR AUTHOR'S ORGANIZ ATION 08/06/2023 [facility] DATE CREATED AUTHOR AUTHOR'S ORGANIZ ATION 04/04/2024 [facility] DATE CREATED AUTHOR AUTHOR'S ORGANIZ ATION 06/22/2024 [facility] Reason for Visit (unrecogniz ed section and content) Reason Comments Cough Been going on since Sunday. Negative for covid on Sunday. Cough- productive, fatigue, head is full of pressure, sinus pressure, thrown up, diarrhea. Tried otc congestion medication. Denies body aches, chills or sore throat. 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 This clinical summary was aggregated from multiple sources. Caution should be exercised in using it in the provision of clinical care. This summary normalizes information from multiple sources, and as a consequence, information in this document may materially change the coding, format and clinical context of patient data. In addition, data may be omitted in some cases. CLINICAL DECISIONS SHOULD BE BASED ON THE PRIMARY CLINICAL RECORDS. [facility] provides no warranty or guarantee of the accuracy or completeness of information in this document.
== END 2024-08-25 18:19 | disposition home or self-care (01) ==
LOC: LAB 18:18
PROVIDERS: Visit Provider Obstetrics & Gynecology
DX: Z01.419 Encounter for gynecological examination (general) (routine) without abnormal findings (principal)
CPT/HCPCS: 87624; 88175